=== PATIENT | male | born 1985 | race Caucasian/White ===

== ENCOUNTER → 2018-10-10 | Outpatient (CLI) | payer OTHER ==
--- NOTE | 2018-10-10 10:40 | PCVCIMAG ---
APPROVED REPORT Study performed: 10/10/2018 09:01:08 EXAM: Comprehensive 2D, Doppler, and color-flow Echocardiogram Patient Location: Echo lab Status: routine BSA: 2.20 HR: 80 bpmBP: 138/84 mmHg Rhythm: NSR Other Information Study Quality: Adequate Risk Factors: Cardiac Risk Factors: HTN Indications Palpitations 2D Dimensions IVSd: 12.04 (7-11mm) LVDd: 44.39 mm PWd: 10.60 (7-11mm)Ascending Ao: 28.65 (22-36mm) LVDs: 32.45 (25-40mm) Left Atrium: 40.98 (27-40mm) Aortic Root: 28.79 mm LV Single Plane 4CH: 64.28 % LV Single Plane 2CH: 52.47 % Biplane EF: 59.1 % Volumes Left Atrial Volume (Systole) Single Plane 4CH: 51.53 mLSingle Plane 2CH: 56.98 mL LA ESV Index: 25.00 mL/m2 Aortic Valve AoV Peak Carlos.: 1.46 m/s AO Peak Gr.: 8.55 mmHgLVOT Max P.15 mmHg LVOT Max V: 1.24 m/s Mitral Valve E/A Ratio: 1.3 MV Decel. Time: 237.56 ms MV E Max Carlos.: 0.64 m/s MV A Carlos.: 0.50 m/s IVRT: 103.81 ms Pulmonary Valve PV Peak Carlos.: 1.22 m/sPV Peak Gr.: 5.93 mmHg Pulmonary Vein P Vein S: 0.31 m/sP Vein A: 0.29 m/s P Vein D: 0.47 m/sP Vein A Dur.: 128.0 msec P Vein S/D Ratio: 0.66 Tricuspid Valve TR Peak Carlos.: 2.58 m/s TR Peak Gr.: 26.53 mmHg Left Ventricle The left ventricle is normal size. There is normal LV segmental wall motion. There is normal left ventricular wall thickness. Left ventricular systolic function is normal. The left ventricular ejection fraction is within the normal range. LVEF is 55-60%. The left ventricular diastolic function is normal. Right Ventricle The right ventricle is normal size. The right ventricular systolic function is normal. Atria The left atrium size is normal. The right atrium size is normal. Aortic Valve The aortic valve is normal in structure. No aortic regurgitation is present. There is no aortic valvular stenosis. Mitral Valve The mitral valve is normal in structure. There is no mitral valve regurgitation noted. No evidence of mitral valve stenosis. Tricuspid Valve The tricuspid valve is normal in structure. Trace tricuspid regurgitation with PAP of 34 mmHg. Pulmonic Valve The pulmonary valve is normal in structure. There is trace pulmonic valvular regurgitation. Great Vessels The aortic root is normal in size. IVC is normal in size and collapses >50% with inspiration. Pericardium There is no pericardial effusion. There is no pleural effusion. <Conclusion> The left ventricle is normal size. There is normal left ventricular wall thickness. Left ventricular systolic function is normal. The left ventricular diastolic function is normal. The right ventricle is normal size. The left atrium size is normal. The right atrium size is normal. The aortic valve is normal in structure. There is no mitral valve regurgitation noted. Trace tricuspid regurgitation with PAP of 34 mmHg.
--- NOTE | 2018-10-11 14:14 | PCVCIMAG ---
APPROVED REPORT Patient Location: Echo lab Room #: Stress Nurse: Saranya Amador RN Treadmill Stress Test Indications- palpitations, htn The patient exercised according to the KATELYN protocol for 9 mins; achieving a work level of 10.4 METS. The resting heart rate of 81 bpm mayela to a maximum heart rate of 179 bpm. This value represent 95 % of the maximal, age-predicted heart rate. The resting blood pressure of 138/84 mmHg, mayela to a maximum blood pressure of 180/70 mmHg. The exercise test was stopped due to dyspnea and fatigue. No palpitations or chest pain. Conclusion 1. Clinical response, nonischemic. 2. Stress ECG response, nonischemic. 3. Exercise tolerance, average. 4. Arrhythmias, none.
== END | disposition home or self-care (01) ==
LOC: PCVCIMAG 12:14
PROVIDERS: ATTEND Internal Medicine Cardiovascular Disease
DX: R00.2 Palpitations (principal); I49.8 Other specified cardiac arrhythmias; I10 Essential (primary) hypertension
CPT/HCPCS: 93017; 93306